=== PATIENT | female | born 1975 | race Caucasian/White ===

== ENCOUNTER 2019-08-18 22:20 | Emergency (ER) | payer MEDICAID, SELFPAY ==
[2019-08-18 22:22] VITALS: BP 106/80; PULSE 96; RESP 18; TEMP 36.8; O2SAT 95; BMI 36.9
--- NOTE | 2019-08-18 22:43 | ED.DCSUM_ITS ---
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 no other injuries. Location: R ankle Quality of Pain: Aching Current Severity: Severe Maximum Severity: Severe Worsened by: movement, trying to WB Relieved by: remaining still Associated Symptoms: Loss of function, Inability to ambulate - on RLE. Negative for: Parasthesias, Weakness, Loss of consciousness, Amnesia Past Medical History - Allergies and Home Meds Allergies/Adverse Reactions: Allergies amoxicillin [Amoxicillin] Allergy (Verified 08/18/19 22:21) Hives latex Allergy (Verified 08/18/19 22:21) Rash Sulfa (Sulfonamide Antibiotics) Allergy (Verified 08/18/19 22:21) Hives codeine Adverse Reaction (Verified 08/18/19 22:21) Vomiting Primary Care Physician: Care Physician,No Primary [Primary Care Provider] - Smoking Status: Current every day smoker Review of Systems General: Denies: Chills, Fever, Sweats Musculoskeletal: Reports: Extremity Pain Skin: Denies: Rash, Wounds Neurological: Denies: Headache, Weakness, Numbness Physical Exam Vital Signs/Narrative: Vital Signs Temp Pulse Resp BP Pulse Ox 08/18/19 22:22 98.2 F 96 18 106/80 95 Inital Vital Signs reviewed: Yes General: Well nourished, Well developed, - - NAD Head: Normocephalic, Atraumatic Extremeties: Tenderness base of the fifth metatarsal mildly, mostly at the lateral malleolus of the right ankle. No tenderness of the medial malleolus, rest of the foot, or at the knee/proximal fibula, or the rest of the fibular shaft. Skin intact. No deformities. Very limited range of motion of the ankle due to pain. Skin: Normal color, No rash, No Trauma - RLE skin intact Neurological: Alert, Oriented x3, Cranial nerves II-XII grossly intact, Normal Strength, Normal Sensation Psychological: Normal affect, Normal Mood Diagnostic/Tx/Re-eval Clinical Impression(s) from Imaging Studies Ankle X-Ray 08/18/19 22:53 IMPRESSION: Acute nondisplaced transverse fracture the distal aspect of the lateral malleolus the fibula with surrounding soft tissue swelling. Electronically Signed: Roverto Cleveland MD at 23:12 EDT Tel , Service support , - Medical Decision Making Distal fibular fracture noted. Will place in a boot, give crutches and pain medication, will follow-up with orthopedics. The base of the fifth metatarsal seen in the x-rays and does not appear fractured. Suspicion for fracture there was low. ED Disposition - Plan for ED Patient: Disposition: Home or Assisted Living Diagnosis: Fracture of distal end of right fibula Instructions: ED Ankle Fx Distal Fibula Prescriptions: Hydrocodone Bitart/Apap 5-325 [[place] 5MG-325MG] 1 tab PO Q4H PRN PRN 2 Days #10 tab PRN Reason: Pain Prescription Printed Referrals: Renate Nixon DO [STAFF PHYSICIAN] - 5-7 Days
[2019-08-18] MEDS: HYDROcodone Bitartrate/Apap 5/325 Tablet PO (22:52)
--- NOTE | 2019-08-18 22:53 | RAD_ITS ---
STUDY: X-RAY - RIGHT ANKLE REASON FOR EXAM: Female, 44 years old. LATERAL PAIN WITH SWELLING S/P TWISTING INJURY TECHNIQUE: 3 view(s) of the ankle. COMPARISON: None. FINDINGS: Normal visualized distal tibia and fibula. Acute nondisplaced transverse fracture the distal aspect of the lateral malleolus the fibula with surrounding soft tissue swelling. Normal tibiotalar articulation and ankle mortise. Normal visualized talus and calcaneus. The visualized subtalar, talonavicular, calcaneocuboid and tarsal articulations are normal. The soft tissue structures are unremarkable. RAD/Ankle min 3 Views IMPRESSION: Acute nondisplaced transverse fracture the distal aspect of the lateral malleolus the fibula with surrounding soft tissue swelling. Electronically Signed: Roverto Cleveland MD at 23:12 EDT Tel , Service support ,
[2019-08-18 23:38] VITALS: RESP 15; O2SAT 95
== END 2019-08-19 01:08 | disposition home or self-care (01) ==
LOC: ED 08-19
PROVIDERS: Emergency Provider Emergency Medicine
DX: S82.64XA Nondisplaced fracture of lateral malleolus of right fibula, initial encounter for closed fracture (principal); X50.1XXA Overexertion from prolonged static or awkward postures, initial encounter; Y93.9 Activity, unspecified; Y92.9 Unspecified place or not applicable; F17.200 Nicotine dependence, unspecified, uncomplicated
CPT/HCPCS: 73610; 99285

== ENCOUNTER → 2024-08-08 | Outpatient (CLI) | payer SELFPAY | END | disposition home or self-care (01) | LOC: LABSPEC 16:32 | PROVIDERS: Referring Provider Nurse Practitioner; Visit Provider Nurse Practitioner | DX: R39.9 Unspecified symptoms and signs involving the genitourinary system (principal) | CPT/HCPCS: 87086; 87088; 87186 ==